=== PATIENT | male | born 1995 | race African-American/Black ===

== ENCOUNTER 2019-02-21 21:45 | Emergency (ER) | payer SELFPAY ==
[~2019-02-21] VITALS: Ht 180.3 cm; Wt 79.4 kg
[2019-02-21 22:25] VITALS: BP 144/88
--- NOTE | 2019-02-21 22:25 | NUR ---
ED Nurse Note: ATJACQUI WALKED IN TO ED C/O DOG BITE ON RIGHT CALF AT WORK AT 1800. PT IS POSTMAN. DOG IS UNKNOWN; VACCINATIONS UNKNOWN. AAOX4, VSS AT THIS TIME, SKIN IS DRY, WARM TO TOUCH.
[2019-02-21] MEDS ORDERED: Augmentin 875mg Tab ORAL ONE (23:00)
[2019-02-21] MEDS ORDERED: Tetanus/Diptheria/Pertussis IM ONE (23:00)
[2019-02-21] MEDS ORDERED: Bacitracin Oint UD TOPIC ONE (23:00)
[2019-02-21] MEDS ORDERED: BACITRACIN15 GM TOPIC (23:07)
[2019-02-21] MEDS ORDERED: AUGMENTIN 875-1 EAC1 ORAL (23:07)
[2019-02-21] MEDS ORDERED: IBUPROFEN600 MG ORAL (23:07)
[2019-02-21 23:15] VITALS: BP 144/88
--- NOTE | 2019-02-21 23:16 | NUR ---
ED Nurse Note: Pt cleared by health care Provider for discharge. DC instructions/prescription was given and explained to pt and verbalized understanding of teachings. All medical deviecs such as ID band removed. Pt is AAO x4, ambulatory and left with all personal belongings.
--- NOTE | 2019-02-22 02:19 | Emergency Room Report ---
History of Present Illness General Chief Complaint: Animal Bite Source: Patient Present Illness HPI 23-year-old male presents ED for evaluation. Status post dog bite. 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 Pain is dull, 5 out of 10, nonradiating. Tetanus unknown. Denies fevers or chills. Denies any active bleeding or discharge. States the dog appeared healthy and not rabid. No other aggravating relieving factors. Denies any other associated symptoms Allergies: Coded Allergies: No Known Allergies (Unverified , 02/21/19) Patient History Past Medical History: none Past Surgical History: none Pertinent Family History: none Social History: Denies: smoking, alcohol use, drug use Immunizations: UTD Reviewed Nursing Documentation: PMH: Agreed; PSxH: Agreed Nursing Documentation-PMH Past Medical History: No Stated History Review of Systems All Other Systems: negative except mentioned in HPI Physical Exam Vital Signs Date Time Temp Pulse Resp B/P (MAP) Pulse Ox O2 Delivery O2 Flow Rate FiO2 02/21/19 22:05 98.2 64 14 97 Room Air 02/21/19 22:25 144/88 Sp02 EP Interpretation: reviewed, normal General Appearance: no apparent distress, alert, GCS 15, non-toxic Head: normocephalic Eyes: bilateral eye normal inspection, bilateral eye PERRL ENT: normal ENT inspection Neck: normal inspection Respiratory: normal inspection Cardiovascular #1: normal inspection Gastrointestinal: normal inspection Rectal: deferred Genitourinary: no CVA tenderness Musculoskeletal: calf tenderness Neurologic: alert, oriented x3, responsive, motor strength/tone normal, sensory intact, speech normal Psychiatric: normal inspection Skin: other - superficial bite roosevelt on R calf. no surrounding erythema/ induration. no fluctuance or discharge Lymphatic: normal inspection Medical Decision Making Diagnostic Impression: Primary Impression: Dog bite of calf Qualified Codes: S81.851A - Open bite, right lower leg, initial encounter; W54.0XXA - Bitten by dog, initial encounter ER Course Hospital Course 23-year-old M presents ED c/o R calf pain s/p dog bite Differential diagnoses include: abscess, cellulitis, ankle fracture, dislocation Clinical course Patient placed on stretcher. After initial history and physical, wound is irrigated. I ordered augmentin, tetanus Discussed findings with patient. Wound does not appear deep or penetrating. Regardless patient will be placed on antibiotics. Wound care instructions given. Safe for discharge and close outpatient follow-up. We'll provide referrals Diagnosis -dog bite of calf Stable and discharged to home with prescription Rx augmentin, motrin, bacitracin. Followup with PMD. Return to ED if symptoms recur or worsen Last Vital Signs Date Time Temp Pulse Resp B/P (MAP) Pulse Ox O2 Delivery O2 Flow Rate FiO2 02/21/19 23:15 98.2 14 144/88 97 Room Air 02/21/19 22:05 64 Status: improved Disposition: HOME, SELF-CARE Condition: Stable Scripts Ibuprofen* (MOTRIN*) 600 Mg Tablet 600 MG ORAL Q8H PRN for For Pain, #30 TAB 0 Refills Prov: Zach Preciado MD 02/21/19 Bacitracin (Bacitracin) 28.4 Gm Oint...g. 1 APPLIC TOPIC THREE TIMES A DAY, #28.4 GM Prov: Zach Preciado MD 02/21/19 Amoxicillin/Potassium Clav 875-125* (AUGMENTIN 875-125 TABLET*) 1 Each Tablet 1 TAB ORAL TWICE A DAY, #14 TAB Prov: Zach Preciado MD 02/21/19 Referrals: Marly Zaldivar [facility] Departure Forms: Return to Work Return to Work Date: February 24, 2019 Work Restrictions: None Patient Instructions: Animal Bite, [id number] Zach Preciado MD February 22, 2019 02:18
== END 2019-02-21 23:15 | disposition home or self-care (01) ==
LOC: EMR 22:14
DX: S81.851A Open bite, right lower leg, initial encounter (principal); W54.0XXA Bitten by dog, initial encounter; Z23 Encounter for immunization; Z20.3 Contact with and (suspected) exposure to rabies
CPT/HCPCS: 90471; 90715; 99283